=== PATIENT | male | born 1960 | race Caucasian/White ===

== ENCOUNTER 2019-05-29 10:10 | Emergency (ER) | payer BC ==
--- NOTE | 2019-05-29 10:44 | RAD ---
RADIOGRAPH CHEST 2 VIEW: DATE: 05/29/2019 HISTORY: 58-year-old male status post acute chest trauma FINDINGS: The images are overexposed. There is no pleural effusion, cardiomegaly, or gross evidence of consolid ation. IMPRESSION: 1) Limited study. 2) no acute findings.
== END 2019-05-29 10:53 | disposition home or self-care (01) ==
LOC: BURERS 10:10
DX: S20.212A Contusion of left front wall of thorax, initial encounter (principal); I10 Essential (primary) hypertension; W18.30XA Fall on same level, unspecified, initial encounter
CPT/HCPCS: 71046